=== PATIENT | female | born 1930 | race Caucasian/White ===

== ENCOUNTER 2016-05-29 20:26 | Emergency (ER) | payer MEDICARE, BC ==
[2016-05-29] MEDS ORDERED: Sodium Chloride 0.9% 1000 ML 1,000 ML IV STA ×2 (20:44→22:18)
--- NOTE | 2016-05-29 20:52 | ERPHSYRPT ---
- History of Present Illness Time Seen by Provider: 05/29/16 20:31 Source: patient, family (SON) Exam Limitations: other (DEMENTIA) Patient Subjective Stated Complaint: PT SENT FROM LOCAL [facility] FOR REPORTS OF FEVER AND WEAKNESS Triage Nursing Assessment: PT IS ALERT AND CONFUSED, FOLLOWS COMMANDS, MOVES ALL EXREMITIES WITH EQUAL STRENGTH, PT TO TRT AREA PER WHEELCHAIR, DEMONSTRATES PROFOUND WEAKNESS, RESPS EASY AND NON LABORED, SKIN PWD Physician History: TODAY PT HAS HAD FEVER UP TO 102 DEGREES AND NASAL CONGESTION PER SON. PT DENIES CHEST PAIN, SHORTNESS OF AIR, VOMITING, ABDOMINAL PAIN; ADMITS TO THIRST AND GENERALIZED WEAKNESS. Allergies/Adverse Reactions: iodine Allergy (Verified 05/29/16 20:46) Home Medications: Amlodipine Besylate 5 mg [Norvasc 5 mg] 5 mg PO DAILY 05/29/16 [History] Magnesium Hydroxide 30 ml [Milk of Magnesia 30 ml] 30 ml PO DAILY PRN [History] Memantine HCl/Donepezil HCl [Namzaric 28 mg-10 mg Capsule] 1 each PO HS [History] Potassium Chloride 20 Meq [Klor-Con 20 MEQ] 20 meq PO BID 05/29/16 [History] Primidone 50 MG [Mysoline 50Mg] 50 mg PO DAILY 05/29/16 [History] Primidone 50 MG [Mysoline 50Mg] 100 mg PO HS 05/29/16 [History] Venlafaxine HCl ER 37.5 mg [Effexor ER 37.5 MG] 37.5 mg PO DAILY 05/29/16 [History] Venlafaxine HCl [Effexor Xr] 150 mg PO DAILY 05/29/16 [History] Hx Tetanus, Diphtheria Vaccination/Date Given: Yes (unknown) Hx Influenza Vaccination/Date Given: Yes Hx Pneumococcal Vaccination/Date Given: Yes Immunizations Up to Date: Yes - Review of Systems Constitutional: Fever, Weakness (GENERALIZED), Other (THIRST) Ears, Nose, & Throat: Nose Congestion Respiratory: No Dyspnea Cardiac: No Chest Pain Abdominal/Gastrointestinal: No Abdominal Pain, No Vomiting All Other Systems: Reviewed and Negative - Past Medical History Pertinent Past Medical History: Yes Neurological History: Alzheimer's Disease, Dementia, Stroke ENT History: No Pertinent History Cardiac History: Angina, Hypertension Respiratory History: No Pertinent History Endocrine Medical History: No Pertinent History Musculoskeletal History: No Pertinent History GI Medical History: No Pertinent History History: No Pertinent History Psycho-Social History: Anxiety, Depression Female Reproductive Disorders: No Pertinent History Other Medical History: VERTIGO,DEMENTIA - Past Surgical History Past Surgical History: Yes Neuro Surgical History: No Pertinent History Cardiac: No Pertinent History Respiratory: No Pertinent History Gastrointestinal: No Pertinent History Genitourinary: No Pertinent History Musculoskeletal: No Pertinent History Female Surgical History: Hysterectomy - Social History Smoking Status: Never smoker Exposure to second hand smoke: No Alcohol Use: None Drug Use: none Patient Lives Alone: No Significant Family History: no pertinent family hx - Female History Hx Now: No - Nursing Vital Signs Nursing Vital Signs: Initial Vital Signs Temperature 99.7 F Temperature Source Rectal Pulse Rate 81 Respiratory Rate 18 Blood Pressure [Right Arm] 139/75 - Physical Exam General Appearance: alert Eye Exam: PERRL/EOMI ENT Exam: hearing grossly normal, TMs normal, pharyngeal erythema (MILD), airway intact Neck Exam: normal inspection Respiratory Exam: lungs clear Cardiovascular/Chest Exam: normal heart sounds Gastrointestinal/Abdominal Exam: soft, normal bowel sounds Extremity Exam: normal range of motion, No pedal edema Neurologic Exam: alert, cooperative, sensation nml, No motor deficits, No motor weakness Skin Exam: warm, dry SpO2 Interpretation: normal SpO2: 95 Oxygen Delivery: Room Air - Course Nursing assessment & vital signs reviewed: Yes Ordered Tests: Active Orders 24 hr Category Date Time Status Catheter-[place] STAT Care 05/29/16 20:44 Active IV Insertion STAT Care 05/29/16 20:44 Active CHEST 1 VIEW (PORTABLE) Stat Exams 05/29/16 20:44 Taken AMYLASE Stat Lab 05/29/16 20:55 Completed BLOOD CULTURE Stat Lab 05/29/16 20:55 Received CBC W DIFF Stat Lab 05/29/16 20:55 Completed CMP Stat Lab 05/29/16 20:55 Completed CULTURE, THROAT Stat Lab 05/29/16 21:00 Received CULTURE,URINE Stat Lab 05/29/16 21:00 Received LIPASE Stat Lab 05/29/16 20:55 Completed Manual Differential NC Stat Lab 05/29/16 20:55 Completed [place] Screen Stat Lab 05/29/16 20:55 Completed STREP SCREEN-BETA A Stat Lab 05/29/16 21:00 Completed UA W/ MICROSCOPIC Stat Lab 05/29/16 21:00 Completed Medication Summary Generic Name Dose Route Start Last Admin Trade Name Addison REESEN Reason Stop Dose Admin Sodium Chloride 1,000 mls @ 999 mls/hr 05/29/16 22:18 05/29/16 22:26 Sodium Chloride 0.9% 1000 Ml IV 05/29/16 23:18 999 mls/hr .Q1H1M STA Administration Discontinued Medications Generic Name Dose Route Start Last Admin Trade Name Addison REESEN Reason Stop Dose Admin Sodium Chloride 1,000 mls @ 999 mls/hr 05/29/16 20:44 05/29/16 20:56 Sodium Chloride 0.9% 1000 Ml IV 05/29/16 21:44 999 mls/hr .Q1H1M STA Administration Sodium Chloride Confirm 05/29/16 20:53 Sodium Chloride 0.9% 1000 Ml Administered 05/29/16 20:54 Dose 1,000 mls @ ud .ROUTE .STK-MED ONE Sodium Chloride Confirm 05/29/16 22:22 Sodium Chloride 0.9% 1000 Ml Administered 05/29/16 22:23 Dose 1,000 mls @ ud .ROUTE .STK-MED ONE Oseltamivir Phosphate 75 mg 05/29/16 22:19 05/29/16 22:25 Tamiflu 75mg Capsule PO 05/29/16 22:20 75 mg STAT ONE Administration Oseltamivir Phosphate Confirm 05/29/16 22:22 Tamiflu 75mg Capsule Administered 05/29/16 22:23 Dose 75 mg PO .STK-MED ONE Lab/Rad Data: Laboratory Result Diagrams 05/29/16 20:55 05/29/16 20:55 Laboratory Results 05/29/16 05/29/16 05/29/16 Range/Units 21:05 21:00 21:00 WBC (4.0-10.5) K/mm3 RBC (4.1-5.4) M/mm3 Hgb (12.0-16.0) gm/dl Hct (35-47) % MCV (78-100) fl MCH (26-32) pg MCHC (32-36) g/dl RDW (11.5-14.0) % Plt Count (150-450) K/mm3 MPV (6-9.5) fl Segmented Neutrophils (36.0-66.0) % Lymphocytes (Manual) (24-44) % Monocytes (Manual) (0.0-12.0) % Eosinophils (Manual) (0.00-3.0) % Differential Comment Platelet Estimate (NORMAL) Sodium (136-145) mEq/L Potassium (3.5-5.1) mEq/L Chloride (98-107) mEq/L Carbon Dioxide (21-32) mEq/L Anion Gap (5-15) MEQ/L BUN (9-20) mg/dL Creatinine (0.55-1.30) mg/dl Estimated GFR ML/MIN Glucose (70-110) MG/DL Calcium (8.5-10.1) mg/dL Total Bilirubin (0.2-1.0) mg/dL AST (15-37) U/L ALT (12-78) U/L Alkaline Phosphatase (46-116) U/L Serum Total Protein (6.4-8.2) gm/dL Albumin (3.4-5.0) g/dL Amylase (25-115) U/L Lipase (73-393) U/L Ur Collection Type CATH Urine Color YELLOW (YELLOW) Urine Appearance CLEAR (CLEAR) Urine pH 5.5 (5-6) Ur Specific [place] 1.025 (1.005-1.025) Urine Protein 30 (Negative) Urine Glucose (UA) NEGATIVE (NEGATIVE) mg/dL Urine Ketones NEGATIVE (NEGATIVE) Urine Nitrite NEGATIVE (NEGATIVE) Urine Bilirubin NEGATIVE (NEGATIVE) Urine Urobilinogen 0.2 (0-1) mg/dL Urine WBC (Auto) NEGATIVE (NEGATIVE) Urine RBC (Auto) NEGATIVE (0-5) Edmund/ul Ur Epithelial Cells FEW (FEW) /HPF Monoscreen (Negative) Influenza Type A Ag POSITIVE (NEGATIVE) Influenza Type B Ag NEGATIVE (NEGATIVE) RSV (PCR) NEGATIVE (Negative) Streptococcus Screen NEGATIVE (Negative) Specimen Received 05/29/16:2100 05/29/16 05/29/16 05/29/16 Range/Units 20:55 20:55 20:55 WBC 4.6 (4.0-10.5) K/mm3 RBC 3.98 L (4.1-5.4) M/mm3 Hgb 11.8 L (12.0-16.0) gm/dl Hct 36.2 (35-47) % MCV 91.0 (78-100) fl MCH 29.6 (26-32) pg MCHC 32.6 (32-36) g/dl RDW 13.8 (11.5-14.0) % Plt Count 147 L (150-450) K/mm3 MPV 10.0 H (6-9.5) fl Segmented Neutrophils 74 H (36.0-66.0) % Lymphocytes (Manual) 15 L (24-44) % Monocytes (Manual) 10 (0.0-12.0) % Eosinophils (Manual) 1 (0.00-3.0) % Differential Comment NORMAL Platelet Estimate NORMAL (NORMAL) Sodium 137 (136-145) mEq/L Potassium 4.2 (3.5-5.1) mEq/L Chloride 103 (98-107) mEq/L Carbon Dioxide 26.6 (21-32) mEq/L Anion Gap 11.8 (5-15) MEQ/L BUN 26 H (9-20) mg/dL Creatinine 1.48 H (0.55-1.30) mg/dl Estimated GFR 36 ML/MIN Glucose 105 (70-110) MG/DL Calcium 8.1 L (8.5-10.1) mg/dL Total Bilirubin < 0.1 L (0.2-1.0) mg/dL AST 20 (15-37) U/L ALT 15 (12-78) U/L Alkaline Phosphatase 83 (46-116) U/L Serum Total Protein 6.8 (6.4-8.2) gm/dL Albumin 3.3 L (3.4-5.0) g/dL Amylase 99 (25-115) U/L Lipase 255 (73-393) U/L Ur Collection Type Urine Color (YELLOW) Urine Appearance (CLEAR) Urine pH (5-6) Ur Specific [place] (1.005-1.025) Urine Protein (Negative) Urine Glucose (UA) (NEGATIVE) mg/dL Urine Ketones (NEGATIVE) Urine Nitrite (NEGATIVE) Urine Bilirubin (NEGATIVE) Urine Urobilinogen (0-1) mg/dL Urine WBC (Auto) (NEGATIVE) Urine RBC (Auto) (0-5) Edmund/ul Ur Epithelial Cells (FEW) /HPF Monoscreen (Negative) Influenza Type A Ag (NEGATIVE) Influenza Type B Ag (NEGATIVE) RSV (PCR) (Negative) Streptococcus Screen (Negative) Specimen Received 05/29/16 Range/Units 20:55 WBC (4.0-10.5) K/mm3 RBC (4.1-5.4) M/mm3 Hgb (12.0-16.0) gm/dl Hct (35-47) % MCV (78-100) fl MCH (26-32) pg MCHC (32-36) g/dl RDW (11.5-14.0) % Plt Count (150-450) K/mm3 MPV (6-9.5) fl Segmented Neutrophils (36.0-66.0) % Lymphocytes (Manual) (24-44) % Monocytes (Manual) (0.0-12.0) % Eosinophils (Manual) (0.00-3.0) % Differential Comment Platelet Estimate (NORMAL) Sodium (136-145) mEq/L Potassium (3.5-5.1) mEq/L Chloride (98-107) mEq/L Carbon Dioxide (21-32) mEq/L Anion Gap (5-15) MEQ/L BUN (9-20) mg/dL Creatinine (0.55-1.30) mg/dl Estimated GFR ML/MIN Glucose (70-110) MG/DL Calcium (8.5-10.1) mg/dL Total Bilirubin (0.2-1.0) mg/dL AST (15-37) U/L ALT (12-78) U/L Alkaline Phosphatase (46-116) U/L Serum Total Protein (6.4-8.2) gm/dL Albumin (3.4-5.0) g/dL Amylase (25-115) U/L Lipase (73-393) U/L Ur Collection Type Urine Color (YELLOW) Urine Appearance (CLEAR) Urine pH (5-6) Ur Specific [place] (1.005-1.025) Urine Protein (Negative) Urine Glucose (UA) (NEGATIVE) mg/dL Urine Ketones (NEGATIVE) Urine Nitrite (NEGATIVE) Urine Bilirubin (NEGATIVE) Urine Urobilinogen (0-1) mg/dL Urine WBC (Auto) (NEGATIVE) Urine RBC (Auto) (0-5) Edmund/ul Ur Epithelial Cells (FEW) /HPF Monoscreen NEGATIVE (Negative) Influenza Type A Ag (NEGATIVE) Influenza Type B Ag (NEGATIVE) RSV (PCR) (Negative) Streptococcus Screen (Negative) Specimen Received - Departure Time of Disposition: 22:31 Departure Disposition: Extended Care Facility Clinical Impression: INFLUENZA A Condition: Fair Critical Care Time: No Referrals: CASH WALLACE [Primary Care Provider] - Instructions: Influenza -- Adult Additional Instructions: FOLLOW UP WITH PRIVATE DOCTOR TOMORROW. Prescriptions: Oseltamivir 75 mg [Tamiflu 75MG Capsule] 75 mg PO BID #10 cap
[2016-05-29] MEDS ORDERED: Sodium Chloride 0.9% 1000 ML 1,000 ML ONE ×2 (20:53→22:22)
[2016-05-29 21:10] LABS: Mean Corpuscular Hemoglobin 29.6 pg (26-32); Platelet Count 147 K/mm3 (150-450); Red Blood Count 3.98 M/mm3 (4.1-5.4); Red Cell Distribution Width 13.8 % (11.5-14.0); White Blood Count 4.6 K/mm3 (4.0-10.5)
[2016-05-29 21:28] LABS: LIPASE 255 U/L (73-393)
[2016-05-29 21:29] LABS: Collection Type CATH; Ph 5.5 (5-6)
[2016-05-29 21:30] LABS: COMPLETE URINE MICROSCOPIC? YES; Epithelial Cells FEW /HPF (FEW)
[2016-05-29 21:33] LABS: ALBUMIN 3.3 g/dL (3.4-5.0); ALKALINE PHOSPHATASE 83 U/L (46-116); ANION GAP 11.8 MEQ/L (5-15); BLOOD UREA NITROGEN 26 mg/dL (9-20); CHLORIDE 103 mEq/L (98-107); Carbon Dioxide 26.6 mEq/L (21-32); Glucose 105 MG/DL (70-110); Potassium 4.2 mEq/L (3.5-5.1); SGOT/AST 20 U/L (15-37); SGPT/ALT 15 U/L (12-78); SODIUM 137 mEq/L (136-145); Total Protein 6.8 gm/dL (6.4-8.2)
[2016-05-29 21:43] LABS: BILIRUBIN,TOTAL < 0.1 mg/dL (0.2-1.0)
[2016-05-29 22:09] LABS: Eosinophil 1 % (0.00-3.0); Platelet Estimate NORMAL (NORMAL); Total Cells Counted 100
[2016-05-29] MEDS ORDERED: Tamiflu 75MG Capsule PO ONE ×2 (22:19→22:22)
[2016-05-29 22:25] VITALS: PULSE 81
[2016-05-29 23:46] VITALS: BP 141/75; O2SAT 97
--- NOTE | 2016-05-30 08:54 | XRAY ---
Indication: Fever. Comparison: October 24, 2015. Portable chest remains underinflated and clear. Heart and mediastinal structures still within normal limits for AP portable technique. Bony thorax intact. Impression: Stable nonacute underinflated chest.
== END 2016-05-29 23:47 ==
LOC: ED 20:26
DX: J11.1 Influenza due to unidentified influenza virus with other respiratory manifestations (principal); R50.9 Fever, unspecified; I10 Essential (primary) hypertension; Z79.899 Other long term (current) drug therapy
CPT/HCPCS: 99284; 36000; 51702; 96360; 96361; 87040; 82150; 81000; 86308; 36415; 87430; 83690; 87070; 85025; 80053; 87086; 87631; 71010; A9270

== ENCOUNTER 2016-11-20 18:39 | Emergency (ER) | payer MEDICARE, BC ==
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
[2016-11-20 21:29] VITALS: BP 148/78; PULSE 76
[2016-11-21 01:57] VITALS: O2SAT 96
--- NOTE | 2016-11-21 08:48 | XRAY ---
Indication: Head injury following fall. Multiple contiguous axial images obtained through the head without contrast. Comparison: October 24, 2015. Stable age-appropriate global atrophy and moderate periventricular degenerative micro-ischemia bilaterally. No acute intracranial hemorrhage, abnormal extra axial fluid collection, or mass effect. Fourth ventricle is midline. Bony calvarium intact. Minimal mucosal thickening of the right maxillary sinus. Mastoid air cells clear. Impression: Nonacute senile brain. Right maxillary sinus disease. CT DI 47.31
--- NOTE | 2016-11-21 08:52 | XRAY ---
Indication: Pain following fall. Multiple contiguous axial images obtained through the cervical spine. Sagittal and coronal reformatted images obtained. Comparison: January 28, 2014. Axial images again negative for acute fracture, suspicious bony lesions, or spinal canal stenosis. Stable nonunited posterior arch of C1, normal variant. Progressive worsening moderate C3-C7 degenerative endplate spurring. There remains multilevel bilateral degenerative facet arthropathy. Sagittal and coronal reformatted images again demonstrates straightening of the cervical lordosis, positional versus paraspinal muscular spasm. Worsening C3-C7 degenerative disc space narrowing. No acute compression fracture, subluxation, or jumped facet. Normal-appearing craniocervical junction. Visualized noncontrasted soft tissues again demonstrates minimal carotid calcifications and subcentimeter left thyroid nodule/cyst. CT head reported separately. Impression: 1. Again negative for acute fracture/subluxation. Stable lordotic straightening, positional versus paraspinal spasm. 2. Progressive worsening C3-C7 degenerative disc disease. 3. Stable left thyroid nodule/cyst. CT DI 120.32
--- NOTE | 2016-11-21 08:56 | XRAY ---
Indication: Pain following fall. Multiple contiguous axial images obtained through the thoracic spine. Sagittal and coronal reformatted images obtained. Comparison: None. Axial images negative for acute fracture, suspicious bony lesions, or spinal canal stenosis. There is mild multilevel degenerative broad-based disc bulge, endplate spurring, and minimal degenerative vacuum disc phenomena. Sagittal and coronal reformatted images demonstrates normal thoracic alignment/kyphosis. Minimal multilevel degenerative disc space narrowing. No acute compression fracture or subluxation, or jumped facet. Visualized noncontrasted soft tissues demonstrates mild bilateral dependent lung atelectasis and a few calcified granulomas. Small hiatal hernia. Impression: 1. Negative for acute fracture/subluxation. 2. Mild multilevel degenerative disc disease. 3. Incidental small hiatal hernia. CT DI 120.93
== END 2016-11-20 21:29 | disposition home or self-care (01) ==
LOC: ED 18:39
DX: F03.91 Unspecified dementia, unspecified severity, with behavioral disturbance (principal); S09.90XA Unspecified injury of head, initial encounter; S20.229A Contusion of unspecified back wall of thorax, initial encounter; W03.XXXA Other fall on same level due to collision with another person, initial encounter; Z79.899 Other long term (current) drug therapy
CPT/HCPCS: 70450; 72125; 72128; 99284

== ENCOUNTER 2017-01-13 17:08 | Emergency (ER) | payer MEDICARE, BC ==
--- NOTE | 2017-01-13 17:46 | ERPHSYRPT ---
- History of Present Illness Time Seen by Provider: 01/13/17 17:41 Source: family, EMS Exam Limitations: other (dementia) Patient Subjective Stated Complaint: PT BROUGHT TO ED PER EMS FROM LOCAL [facility]- REPORTS PT C/O BACK PAIN JAW PAIN Triage Nursing Assessment: PT PINK WARM ET DRY-NOT ANSWERING ALL QUESTIONS CORRECTLY WHICH IS NORMAL FOR PT-PT SAYS THAT HER JAW HURTS-PT INSTRUCTED TO LEAVE C COLLOR IN PLACE-RESP NONLABORED Physician History: The patient is an 86-year-old female brought in by ambulance from a [facility] where it was reported she fell while trying to walk around someone else's wheelchair. At first she complained of back and shoulder pain but then she complained of neck pain and head pain. She did not lose consciousness. She is a very poor historian due to advanced dementia. Her daughter is present and doesn't know exactly what is hurting. Her past medical history is significant for dementia and hypertension. She also has a history of TIAs. Occurred: just prior to arrival Reason for Fall: lost balance, fell from standing pos Injuries/Pain Location: head, neck Loss of Consciousness: no loss of consciousness Quality: aching Severity of Pain-Max: mild Severity of Pain-Current: mild Modifying Factors: Improves With: nothing Associated Symptoms (Fall): denies symptoms Allergies/Adverse Reactions: iodine Allergy (Verified 01/13/17 17:16) Home Medications: Magnesium Hydroxide 30 ml [Milk of Magnesia 30 ml] 30 ml PO DAILY PRN [History] Memantine HCl/Donepezil HCl [Namzaric 28 mg-10 mg Capsule] 1 each PO HS [History] Potassium Chloride 20 Meq [Klor-Con 20 MEQ] 20 meq PO BID 05/29/16 [History] Primidone 50 MG [Mysoline 50Mg] 50 mg PO DAILY 05/29/16 [History] Primidone 50 MG [Mysoline 50Mg] 100 mg PO HS 05/29/16 [History] Venlafaxine HCl ER 37.5 mg [Effexor ER 37.5 MG] 37.5 mg PO DAILY 05/29/16 [History] Aripiprazole [Abilify] 2 mg DAILY 11/20/16 [History] Bumetanide 1 mg [Bumex 1 mg] 1 mg DAILY 11/20/16 [History] Lisinopril 10 mg [Zestril 10 MG] 10 mg PO DAILY 01/13/17 [History] Lisinopril 5 mg [Zestril 5 MG] 5 mg PO DAILY 01/13/17 [History] Hx Tetanus, Diphtheria Vaccination/Date Given: No Hx Influenza Vaccination/Date Given: Yes Hx Pneumococcal Vaccination/Date Given: Yes Immunizations Up to Date: Yes - Review of Systems Constitutional: No Fever, No Chills Eyes: No Symptoms Ears, Nose, & Throat: No Symptoms Respiratory: No Cough, No Dyspnea Cardiac: No Chest Pain, No Edema, No Syncope Abdominal/Gastrointestinal: No Abdominal Pain, No Nausea, No Vomiting, No Diarrhea Genitourinary Symptoms: No Dysuria Musculoskeletal: Fall, Injury Skin: No Rash Neurological: No Dizziness, No Focal Weakness, No Sensory Changes Psychological: No Symptoms Endocrine: No Symptoms Hematologic/Lymphatic: No Symptoms Immunological/Allergic: No Symptoms All Other Systems: Reviewed and Negative - Past Medical History Pertinent Past Medical History: Yes Neurological History: Alzheimer's Disease, Dementia, Stroke ENT History: No Pertinent History Cardiac History: Angina, Hypertension Respiratory History: No Pertinent History Endocrine Medical History: No Pertinent History Musculoskeletal History: No Pertinent History GI Medical History: No Pertinent History History: No Pertinent History Psycho-Social History: Anxiety, Depression Female Reproductive Disorders: No Pertinent History Other Medical History: VERTIGO,DEMENTIA - Past Surgical History Past Surgical History: Yes Neuro Surgical History: No Pertinent History Cardiac: No Pertinent History Respiratory: No Pertinent History Gastrointestinal: No Pertinent History Genitourinary: No Pertinent History Musculoskeletal: No Pertinent History Female Surgical History: Hysterectomy - Social History Smoking Status: Never smoker Exposure to second hand smoke: No Alcohol Use: None Drug Use: none Patient Lives Alone: No Significant Family History: no pertinent family hx - Female History Hx Now: No - Nursing Vital Signs Nursing Vital Signs: Initial Vital Signs Temperature 98.4 F 01/13/17 17:09 Pulse Rate 90 01/13/17 17:09 Respiratory Rate 20 01/13/17 17:09 Blood Pressure 124/72 01/13/17 17:09 O2 Sat by Pulse Oximetry 96 01/13/17 17:09 Pain Scale Pain Intensity 2 - [place] Coma Score Best Eye Response (Jacque): (4) open spontaneously Best Verbal Response (Jacque): (5) oriented Best Motor Response (Jacque): (6) obeys commands [place] Total: 15 - Physical Exam General Appearance: no apparent distress, alert Head Injury: tenderness (mild at occiput.) Eye Exam: PERRL/EOMI ENT Exam: airway nml Neck Exam: tenderness, other (in C collar) Respiratory/Chest Exam: normal breath sounds, No chest tenderness, No respiratory distress Cardiovascular Exam: normal heart sounds, regular rate/rhythm Gastrointestinal Exam: soft, No tenderness, No distention, No guarding, No ecchymosis Rectal Exam: not done Back Exam: normal inspection, No vertebral tenderness Extremity Exam: normal inspection, normal range of motion, pelvis stable, No deformities Neurologic Exam: alert, cooperative, sensation nml, No motor deficits Skin Exam: normal color, warm, dry SpO2 Interpretation: normal SpO2: 96 Oxygen Delivery: Room Air - CT Exams Head CT Interpretation: Negative (Per Dr Kearney.) Cervical Spine CT Interpretation: Negative (Per Dr Kearney.) Ordered Tests: Active Orders 24 hr Category Date Time Status CERVICAL SPINE WO CONTRAST [CT] Stat Exams 01/13/17 17:46 Taken HEAD WITHOUT CONTRAST [CT] Stat Exams 01/13/17 17:46 Taken - Progress Progress: improved Counseled pt/family regarding: rad results - Departure Time of Disposition: 18:42 Departure Disposition: Home Clinical Impression: Head contusion Condition: Stable Critical Care Time: No Referrals: ELVA VARELA [Primary Care Provider] - Additional Instructions: You fell at the [facility]. You have a head contusion. The CT scan of your head and cervical spine were negative. Take Tylenol as needed. Follow-up as needed.
[2017-01-13 18:44] VITALS: O2SAT 96
[2017-01-13 19:26] VITALS: BP 136/84; PULSE 82
--- NOTE | 2017-01-13 21:30 | XRAY ---
Indication: Confusion following fall. Multiple contiguous axial images obtained through the head without contrast. Comparison: November 20, 2016. Stable age-appropriate global atrophy and moderate periventricular degenerative micro-ischemia bilaterally. No acute intracranial hemorrhage, abnormal extra axial fluid collection, or mass effect. Fourth ventricle is midline. Bony calvarium intact. Visualized paranasal sinuses and mastoid air cells clear. Impression: Stable nonacute senile brain. Comment: Preliminary interpretation was made by [facility]. No discrepancy. CT DI 50.26
--- NOTE | 2017-01-13 21:41 | XRAY ---
Indication: Confusion following fall. Multiple contiguous axial images obtained through the cervical spine. Sagittal and coronal reformatted images obtained. Comparison: November 20, 2016. Axial images again negative for acute fracture, suspicious bony lesions, or spinal canal stenosis. Stable nonunited posterior arch of C1, moderate C3-C7 degenerative endplate spurring, and multilevel bilateral degenerative facet arthropathy. Sagittal and coronal reformatted images again demonstrates straightening of the cervical lordosis, positional versus paraspinal muscular spasm. Stable C3-C7 degenerative disc space narrowing. No acute compression fracture, subluxation, or jumped facet. Normal-appearing craniocervical junction. Visualized noncontrasted soft tissues again demonstrates minimal carotid calcifications and subcentimeter left thyroid nodule/cyst. CT head reported separately. Impression: 1. Again negative for acute fracture/subluxation. 2. Stable lordotic straightening, positional versus paraspinal spasm. 3. Stable C3-C7 degenerative disc disease and left thyroid nodule/cyst. Comment: Preliminary interpretation was made by [facility]. No discrepancy. CT DI 54.70
== END 2017-01-13 19:15 ==
LOC: ED 17:08
DX: S00.93XA Contusion of unspecified part of head, initial encounter (principal); W01.0XXA Fall on same level from slipping, tripping and stumbling without subsequent striking against object, initial encounter; R51 Headache; M54.2 Cervicalgia; Z79.899 Other long term (current) drug therapy; I10 Essential (primary) hypertension; G30.9 Alzheimer's disease, unspecified; F02.80 Dementia in other diseases classified elsewhere, unspecified severity, without behavioral disturbance, psychotic disturbance, mood disturbance, and anxiety; Z86.73 Personal history of transient ischemic attack (TIA), and cerebral infarction without residual deficits
CPT/HCPCS: 70450; 72125; 99284

== ENCOUNTER 2017-05-08 18:37 | Emergency (ER) | payer MEDICARE ==
[2017-05-08 18:54] LABS: BASOPHIL % 0.4 % (0.0-0.4); Basophil (Absolute #) 0.03 (0-0.4); Eosinophil (Absolute #) 0.22 (0-0.5); Granulocyte Absolute (ANC) 4.93 (1.4-6.9); Granulocytes % 66.4 % (36.0-66.0); Hematocrit 37.7 % (35-47); Hemoglobin 12.1 gm/dl (12.0-16.0); Lymphocyte (Absolute #) 1.66 (1.0-4.6); Lymphocytes % 22.3 % (24.0-44.0); Mean Cell Volume 92.9 fl (78-100); Mean Corpuscular Hemoglobin 29.8 pg (26-32); Mean Corpuscular Hgb Concent. 32.1 g/dl (32-36); Mean Platelet Volume 10.1 fl (6-9.5); Monocyte (Absolute #) 0.59 (0.0-1.3); Monocytes % 7.9 % (0.0-12.0); Platelet Count 223 K/mm3 (150-450); Red Blood Count 4.06 M/mm3 (4.1-5.4); Red Cell Distribution Width 12.9 % (11.5-14.0); White Blood Count 7.4 K/mm3 (4.0-10.5)
--- NOTE | 2017-05-08 19:10 | ERPHSYRPT ---
- History of Present Illness Time Seen by Provider: 05/08/17 19:07 Source: [facility] records, other (nurse) Exam Limitations: clinical condition Patient Subjective Stated Complaint: ems states "The intermediate told us she walked up to the nurses station and just fell over backwards. She normally has dementia and is confused. We did not find any wounds or bruising." Triage Nursing Assessment: Pt alert and confused, pt in c-collar, pt has 20 g iv in left ac. Physical assessment revealed no head swelling, laceration or contusion, shoulders stable with slight tenderness noted to right shoulder, chest stable, abdomen soft non tender, pelvis stable, extremeties unremarkable. Physician History: 87 y/o female with history of dementia brought in from intermediate for falling. According to intermediate, patient went to the nurses station and fell backwards. Uncertain if patient loss consciousness but there are no signs of injury. Upon evaluation by nursing staff, patient had right shoulder pain. Otherwise, patient can not provide any history. Pt is not on any blood thinners. Occurred: just prior to arrival Reason for Fall: unknown Injuries/Pain Location: upper extremity Loss of Consciousness: unsure Allergies/Adverse Reactions: iodine Allergy (Verified 01/13/17 17:16) Home Medications: Magnesium Hydroxide 30 ml [Milk of Magnesia 30 ml] 30 ml PO DAILY PRN [History] Memantine HCl/Donepezil HCl [Namzaric 28 mg-10 mg Capsule] 1 each PO HS [History] Potassium Chloride 20 Meq [Klor-Con 20 MEQ] 20 meq PO BID 05/29/16 [History] Primidone 50 MG [Mysoline 50Mg] 50 mg PO DAILY 05/29/16 [History] Primidone 50 MG [Mysoline 50Mg] 100 mg PO HS 05/29/16 [History] Venlafaxine HCl ER 37.5 mg [Effexor ER 37.5 MG] 37.5 mg PO DAILY 05/29/16 [History] Aripiprazole [Abilify] 2 mg DAILY 11/20/16 [History] Bumetanide 1 mg [Bumex 1 mg] 1 mg DAILY 11/20/16 [History] Lisinopril 10 mg [Zestril 10 MG] 10 mg PO DAILY 01/13/17 [History] Lisinopril 5 mg [Zestril 5 MG] 5 mg PO DAILY 01/13/17 [History] Hx Tetanus, Diphtheria Vaccination/Date Given: Yes Hx Influenza Vaccination/Date Given: Yes Hx Pneumococcal Vaccination/Date Given: No Immunizations Up to Date: Yes - Review of Systems Constitutional: No Fever, No Chills Eyes: No Symptoms Ears, Nose, & Throat: No Symptoms Respiratory: No Cough, No Dyspnea Cardiac: No Chest Pain, No Edema, No Syncope Abdominal/Gastrointestinal: No Abdominal Pain, No Nausea, No Vomiting, No Diarrhea Genitourinary Symptoms: No Dysuria Musculoskeletal: Arthralgias, No Back Pain, No Neck Pain Skin: No Rash Neurological: No Dizziness, No Focal Weakness, No Sensory Changes Psychological: No Symptoms Endocrine: No Symptoms All Other Systems: Reviewed and Negative - Past Medical History Pertinent Past Medical History: Yes Neurological History: Alzheimer's Disease, Dementia, Stroke ENT History: No Pertinent History Cardiac History: Angina, Hypertension Respiratory History: No Pertinent History Endocrine Medical History: No Pertinent History Musculoskeletal History: No Pertinent History GI Medical History: No Pertinent History History: No Pertinent History Psycho-Social History: Anxiety, Depression Female Reproductive Disorders: No Pertinent History Other Medical History: VERTIGO,DEMENTIA - Past Surgical History Past Surgical History: Yes Neuro Surgical History: No Pertinent History Cardiac: No Pertinent History Respiratory: No Pertinent History Gastrointestinal: No Pertinent History Genitourinary: No Pertinent History Musculoskeletal: No Pertinent History Female Surgical History: Hysterectomy - Social History Smoking Status: Unknown if ever smoked Exposure to second hand smoke: No Alcohol Use: None Drug Use: none Patient Lives Alone: No Significant Family History: no pertinent family hx - Nursing Vital Signs Nursing Vital Signs: Initial Vital Signs Temperature 97.8 F 05/08/17 18:59 Pulse Rate 88 05/08/17 18:59 Respiratory Rate 18 05/08/17 18:59 Blood Pressure 142/62 05/08/17 18:59 O2 Sat by Pulse Oximetry 96 05/08/17 18:59 Pain Scale Pain Intensity 4 - [place] Coma Score Best Eye Response (Jacque): (4) open spontaneously Best Verbal Response ([place]): (4) confused conversation Best Motor Response (Jacque): (6) obeys commands [place] Total: 14 - Physical Exam General Appearance: no apparent distress, alert Head Injury: no evidence of injury Eye Exam: PERRL/EOMI ENT Exam: airway nml Neck Exam: supple, trachea midline, full range of motion, normal inspection, No tenderness Respiratory/Chest Exam: normal breath sounds, No chest tenderness, No respiratory distress Cardiovascular Exam: normal heart sounds, regular rate/rhythm Gastrointestinal Exam: soft, No tenderness, No distention, No guarding, No ecchymosis Back Exam: normal inspection, normal range of motion, No vertebral tenderness Extremity Exam: normal inspection, normal range of motion, pelvis stable, No deformities Neurologic Exam: alert, cooperative, java oracle developer II-XII nml as tested, sensation nml, disoriented, confusion, No motor deficits, No sensory deficit, No facial droop, No slurred speech Skin Exam: normal color, warm, dry SpO2 Interpretation: normal SpO2: 96 Oxygen Delivery: Room Air - Course Nursing assessment & vital signs reviewed: Yes EKG Interpreted by Me: RATE, NORMAL AXIS, NORMAL INTERVALS, NORMAL QRS, NORMAL ST-T (HR 86) Ordered Tests: Active Orders 24 hr Category Date Time Status [employer] STAT Care 05/08/17 18:40 Active Cervical Collar Application STAT Care 05/08/17 18:39 Active EKG-ER Only STAT Care 05/08/17 18:39 Active IV Insertion STAT Care 05/08/17 18:39 Active CERVICAL SPINE WO CONTRAST [CT] Stat Exams 05/08/17 18:39 Taken CHEST 1 VIEW (PORTABLE) Stat Exams 05/08/17 18:39 Taken HEAD WITHOUT CONTRAST [CT] Stat Exams 05/08/17 18:39 Taken PELVIS (1 OR 2 VIEWS) Stat Exams 05/08/17 18:39 Taken SHOULDER Stat Exams 05/08/17 19:34 Taken CBC W DIFF Stat Lab 05/08/17 18:49 Completed CMP Stat Lab 05/08/17 18:49 Completed PROTIME WITH INR Stat Lab 05/08/17 18:49 Completed PTT Stat Lab 05/08/17 18:49 Completed Lab/Rad Data: Laboratory Result Diagrams 05/08/17 18:49 05/08/17 18:49 Laboratory Results 05/08/17 05/08/17 05/08/17 Range/Units 18:49 18:49 18:49 WBC 7.4 (4.0-10.5) K/mm3 RBC 4.06 L (4.1-5.4) M/mm3 Hgb 12.1 (12.0-16.0) gm/dl Hct 37.7 (35-47) % MCV 92.9 (78-100) fl MCH 29.8 (26-32) pg MCHC 32.1 (32-36) g/dl RDW 12.9 (11.5-14.0) % Plt Count 223 (150-450) K/mm3 MPV 10.1 H (6-9.5) fl Gran % 66.4 H (36.0-66.0) % Lymphocytes % 22.3 L (24.0-44.0) % Monocytes % 7.9 (0.0-12.0) % Eosinophils % 3.0 (0.00-5.0) % Basophils % 0.4 (0.0-0.4) % Basophils # 0.03 (0-0.4) INR 1.00 (0.8-3.0) APTT 24.0 L (25.3-37.0) SECONDS Sodium 138 (136-145) mEq/L Potassium 4.6 (3.5-5.1) mEq/L Chloride 104 (98-107) mEq/L Carbon Dioxide 24.4 (21-32) mEq/L Anion Gap 14.2 (5-15) MEQ/L BUN 30 H (9-20) mg/dL Creatinine 1.52 H (0.55-1.30) mg/dl Estimated GFR 35 ML/MIN Glucose 173 H (70-110) MG/DL Calcium 8.7 (8.5-10.1) mg/dL Total Bilirubin 0.10 L (0.2-1.0) mg/dL AST 20 (15-37) U/L ALT 15 (12-78) U/L Alkaline Phosphatase 92 (46-116) U/L Serum Total Protein 7.7 (6.4-8.2) gm/dL Albumin 3.7 (3.4-5.0) g/dL - Progress Progress: improved Progress Note: 05/08/17 19:[address] scan head and cervical spine are within normal limits. The pelvic, CXR and shoulder x ray are all within normal limits. The BUN/Cr are chronically elevated. Otherwise, the patient is stable for return back to intermediate. - Departure Time of Disposition: 19:54 Departure Disposition: Home Clinical Impression: Fall Qualifiers: Encounter type: initial encounter Qualified Code(s): W19.XXXA - Unspecified fall, initial encounter Condition: Stable Critical Care Time: No Referrals: ELVA VARELA [Primary Care Provider] - Instructions: Preventing Falls Additional Instructions: Follow up with your primary care doctor for additional information on fall prevention.
[2017-05-08 19:32] LABS: ALBUMIN 3.7 g/dL (3.4-5.0); ANION GAP 14.2 MEQ/L (5-15); BILIRUBIN,TOTAL 0.1 mg/dL (0.2-1.0); Calcium 8.7 mg/dL (8.5-10.1); Carbon Dioxide 24.4 mEq/L (21-32); Creatinine 1 1.52 mg/dl (0.55-1.30); Potassium 4.6 mEq/L (3.5-5.1); Total Protein 7.7 gm/dL (6.4-8.2)
[2017-05-08 20:19] VITALS: BP 124/74; PULSE 89; O2SAT 94
--- NOTE | 2017-05-09 08:36 | XRAY ---
Indication: Status post fall. Multiple contiguous axial images obtained through the head without contrast. Comparison: January 13, 2017. Stable age-appropriate global atrophy and moderate periventricular degenerative micro-ischemia bilaterally. No acute intracranial hemorrhage, abnormal extra axial fluid collection, or mass effect. Fourth ventricle is midline. Bony calvarium intact. Visualized paranasal sinuses and mastoid air cells clear. Impression: Stable nonacute senile brain. Comment: Preliminary interpretation was made by [facility]. No discrepancy. CT DI 48.74
--- NOTE | 2017-05-09 08:40 | XRAY ---
Indication: Pain following fall. Multiple contiguous axial images obtained through the cervical spine. Sagittal and coronal reformatted images obtained. Comparison: January 13, 2017. Minimal C4-C5 motion artifact. Axial images again negative for acute fracture, suspicious bony lesions, or spinal canal stenosis. Stable nonunited posterior arch of C1, moderate C3-C7 degenerative endplate spurring, and multilevel bilateral degenerative facet arthropathy. Sagittal and coronal reformatted images again demonstrates straightening of the cervical lordosis, positional versus paraspinal muscular spasm. Stable C3-C7 degenerative disc space narrowing. No acute compression fracture, subluxation, or jumped facet. Normal-appearing craniocervical junction. Visualized noncontrasted soft tissues again demonstrates minimal carotid calcifications. Lung apices clear. CT head reported separately. Impression: 1. Again negative for acute fracture/subluxation. 2. Stable lordotic straightening, positional versus paraspinal spasm. 3. Stable C3-C7 degenerative disc disease. Comment: Preliminary interpretation was made by [facility]. No critical discrepancy. CT DI 117.56
--- NOTE | 2017-05-09 08:42 | XRAY ---
Indication: Pain following fall. Comparison: None 3 views of the right shoulder demonstrates mild/moderate AC degenerative arthropathy. No other bony, articular, or soft tissue abnormalities.
--- NOTE | 2017-05-09 08:42 | XRAY ---
Indication: Status post fall. Comparison: May 29, 2016. Portable chest less inflated today crowding the lung bases. Upper lungs clear. Heart is not enlarged. Vascularity normal. Bony thorax intact. Impression: Stable nonacute underinflated chest.
--- NOTE | 2017-05-09 08:44 | XRAY ---
Indication: Pain following fall. Comparison: None Single AP pelvis demonstrates lower lumbar degenerative spondylosis and right inferior pubic bone island. No other bony, articular, or soft tissue abnormalities.
== END 2017-05-08 20:33 ==
LOC: ED 18:37
DX: M25.511 Pain in right shoulder (principal); W18.30XA Fall on same level, unspecified, initial encounter; Y93.9 Activity, unspecified; Y92.128 Other place in nursing home as the place of occurrence of the external cause; G30.9 Alzheimer's disease, unspecified; F02.80 Dementia in other diseases classified elsewhere, unspecified severity, without behavioral disturbance, psychotic disturbance, mood disturbance, and anxiety; I10 Essential (primary) hypertension; Z86.73 Personal history of transient ischemic attack (TIA), and cerebral infarction without residual deficits; F41.8 Other specified anxiety disorders; Z79.899 Other long term (current) drug therapy
CPT/HCPCS: 36415; 70450; 71045; 72125; 72170; 73030; 80053; 85025; 85610; 85730; 93005; 93041; 99284; 99285